=== PATIENT | female | born 1960 | race Caucasian/White ===

== ENCOUNTER 2017-01-09 19:53 | Emergency (ER) | payer OTHER ==
[2017-01-09] MEDS ORDERED: ONDANSETRON HCL 4 MG/2 ML VIAL ONE ×2 (20:17→21:06)
[2017-01-09] MEDS ORDERED: ACETAMINOPHEN 325 MG TABLET PO ONE (20:30)
[2017-01-09] MEDS ORDERED: ONDANSETRON ODT PREPAC 4 MG TAB.RAPDIS PO ONE (21:23)
--- NOTE | 2017-01-09 22:01 | ER NURSING DOCUMENTATION ---
Nurse's Notes [facility] Name:Anna Santiago Age:56 yrs Sex:Female :1960 Arrival Date:01/09/2017 Time:19:53 Bed1 Private MD: Diagnosis:Gastroenteritis;Vomiting - Dehydration-2nd to Altitude Illness Presentation: 01/09 20:00 Presenting complaint: Patient states: Pt states she has had a headache for 2 days, ma assoc NV since 1300 Unable to keep anything down. Transition of care: Home. 20:00 Method Of Arrival: Private Vehicle dc 20:00 Acuity: SYBIL 3 ma Triage Assessment: 20:03 General: Appears uncomfortable, well developed, well nourished, well groomed, Behavior ma is cooperative. Pain: Complains of pain in left eye. GI: Reports vomiting. Historical: - Allergies: Tapazole; - Home Meds: 1. thyroid (pork) oral - PMHx: migraines years ago; Rotator cuff tear; - PSHx: ; HYSTERECTOMY; - Tetanus: unknown. - Ebola Screening: : No symptoms or risks identified at this time. . - Immunization history: Flu Vaccine unknown. - Social history: Smoking status: Patient states was never smoker of tobacco. Patient uses alcohol but reports only rare drinking. Screenin:04 Infectious Disease Risk None. Abuse screen: Denies threats or abuse. Nutritional ma screening: No deficits noted. Assessment: 20:04 GI: Dry heaves. ma Vital Signs: 20:03 BP 129 / 54; Pulse 94; Resp 18; Temp 99.0; Pulse Ox 91% on R/A; Weight 61.23 kg; Height ma 5 ft. 3 in. (160.02 cm); Pain 5/10; 20:38 BP 132 / 77; Pulse 90; Pulse Ox 90% ; ma 21:10 BP 137 / 76; Pulse 88; Pulse Ox 97% on R/A; ma 20:03 Body Mass Index 23.91 (61.23 kg, 160.02 cm) dc ED Course: 19:53 Patient arrived in ED. ma1 20:00 Heaven Reyes, RN is Primary Nurse. ma 20:01 Triage completed. ma 20:04 Valuables Remains with patient. Pulse Ox - RN Monitoring Only NIBP On - RN Monitoring ma Only. 20:14 Inserted peripheral IV: 20 gauge in right antecubital area. ma 20:23 Javi Abebe MD is Attending Physician. cd Administered Medications: 20:13 Drug: Zofran 4 mg; Route: IVP; Infused Over: 2 mins; Site: right antecubital; ma 21:31 Follow up: Response: Nausea is decreased ma 20:13 Drug: NS 0.9% 1000 ml; Route: IV; Rate: bolus; Site: right antecubital; Delivery: ma [place] [facility]; 20:45 Follow up: IV Status: Completed infusion; IV Intake: 100ml ma 20:26 Drug: Acetaminophen 975 mg; Route: PO; ma 21:31 Follow up: Response: Pain is decreased ma 20:50 Drug: NS 0.9% 1000 ml; Route: IV; Rate: bolus; Site: right antecubital; Delivery: ma [place] [facility]; 21:18 Follow up: IV Status: Completed infusion; IV Intake: 1000ml ma 21:01 Drug: Zofran 4 mg; Route: IVP; Infused Over: 2 mins; Site: right antecubital; fc 21:30 Follow up: Response: Nausea is decreased ma 21:17 Drug: Zofran 1 tablet; Route: PO; ma 21:30 Follow up: Response: Pharmacy closed - take home med pack ma Intake: 20:45 IV: 100ml; Total: 100ml. ma 21:18 IV: 1000ml; Total: 1100ml. ma Outcome: 21:08 Discharge ordered by . cd 21:59 Discharged to home 21:59 Condition: improved 21:59 Instructed on medication usage, hydration 22:00 Patient left the ED. Signatures: Heaven Reyes, Javi Moran RN, ma, MD MD cd collins, floyd Pushpa Tellez [facility]
--- NOTE | 2017-01-09 22:01 | ER PHYSICIAN DOCUMENTATION ---
Physician Documentation [facility] Name:Anna Santiago Age:56 yrs Sex:Female :1960 Arrival Date:01/09/2017 Time:19:53 Bed1 Private MD: Javi Mejia Disposition: 01/09 21:05 Chart complete. cd Disposition: 01/09/17 21:08 Discharged to Home/Self Care. Impression: Gastroenteritis, Vomiting - Dehydration - 2nd to Altitude Illness. - Condition is Good. - Discharge Instructions: DEHYDRATION (6y-Adult), VOMITING (6y-Adult). - Prescriptions for Zofran 4 mg Oral - take 1 tablet by ORAL route every 6 hours as needed for nausea or vomiting; 6 tablet. - Medical Reconciliation form form. - Follow up: Private Physician; When: 7 - 10 days; Reason: Recheck today's complaints, Continuance of care. - Problem is new. - Symptoms have improved. - Notes: Take Zofran 4mg under tongue every 6 hours as needed for nausea or vomiting Rest, do not go to higher elevation... Take Tylenol 650mg by mouth every 6 hours for 1 - 2 days. Increase fluids to 2 - 3 quarts per day If symptoms continue go to lower elevation. HPI: 20:00 This 56 yrs old Female presents to ER via Private Vehicle with complaints of cd Nausea, Vomiting, Headache. 20:00 The patient presents to the emergency department with nausea, that is moderate, with cd vomiting, a few times, described as clear fluid, without any complaints of abdominal pain. Onset: The symptom(s)/episode began/occurred acutely, 2 day(s) ago, after arrival to [place]. She also complains of a headache. Very little PO intake over the past couple days. Possible causes: travel, arrived from [place] 2 days ago. Associated signs and symptoms: Pertinent positives: anorexia, nausea, vomiting, Pertinent negatives: abdominal pain, diarrhea, dysuria, fever, GI bleeding. Severity of symptoms: At their worst the symptoms were moderate in the emergency department the symptoms are unchanged. Historical: - Allergies: Tapazole; - Home Meds: 1. thyroid (pork) oral - PMHx: migraines years ago; Rotator cuff tear; - PSHx: ; HYSTERECTOMY; - Tetanus: unknown. - Ebola Screening: : No symptoms or risks identified at this time. . - Immunization history: Flu Vaccine unknown. - Social history: Smoking status: Patient states was never smoker of tobacco. Patient uses alcohol but reports only rare drinking. ROS: 20:05 Constitutional: Positive for poor PO intake, Negative for chills, fever. cd 20:05 Abdomen/GI: Positive for nausea, vomiting, anorexia, Negative for abdominal pain, diarrhea, abdominal distension, hematemesis, black/tarry stool, rectal bleeding. 20:05 All other systems are negative. Exam: 20:05 Head/Face: Normocephalic, atraumatic. cd 20:05 ENT: Nares patent. No nasal discharge, no septal abnormalities noted. Tympanic cd membranes are normal and external auditory canals are clear. Oropharynx with no redness, swelling, or masses, exudates, or evidence of obstruction, uvula midline. Mucous membranes dry Back: No spinal tenderness. No costovertebral tenderness. Full range of motion. Skin: Warm, dry with normal turgor. Normal color with no rashes, no lesions, and no evidence of cellulitis. MS/ Extremity: Pulses equal, no cyanosis. Neurovascular intact. Full, normal range of motion. 20:05 Neuro: Awake and alert, GCS 15, oriented to person, place, time, and situation. Cranial nerves II-XII grossly intact. Motor strength 5/5 in all extremities. Sensory grossly intact. Cerebellar exam normal. Normal gait. 20:05 Constitutional: The patient appears alert, awake, non-diaphoretic, non-toxic, well developed, well nourished, in obvious distress, mildly distressed. 20:05 Cardiovascular: Rate: normal, Rhythm: regular, Pulses: no pulse deficits are appreciated, Heart sounds: normal. 20:05 Respiratory: the patient does not display signs of respiratory distress, Respirations: normal, no acute changes, Breath sounds: are normal, clear throughout. 20:05 Abdomen/GI: Inspection: abdomen appears normal, distension, is not seen, Bowel sounds: normal, active, Palpation: abdomen is soft and non-tender, no appreciated organomegaly, Indicators: McBurney's point is not tender, Mays's sign is negative. Vital Signs: 20:03 BP 129 / 54; Pulse 94; Resp 18; Temp 99.0; Pulse Ox 91% on R/A; Weight 61.23 kg; Height ny 5 ft. 3 in. (160.02 cm); Pain 5/10; 20:38 BP 132 / 77; Pulse 90; Pulse Ox 90% ; ma 21:10 BP 137 / 76; Pulse 88; Pulse Ox 97% on R/A; ma 20:03 Body Mass Index 23.91 (61.23 kg, 160.02 cm) ny MDM: 20:00 Data interpreted: Pulse oximetry: on room air is 97 %. Interpretation: normal. cd 20:15 Differential diagnosis: gastritis, Altitude Illness, Dehydration. cd 20:23 Patient medically screened. cd 21:00 Data reviewed: vital signs, nurses notes, old medical records, and as a result, I will cd discharge patient, administer IV fluids, NS bolus, NS maintenence. 21:05 Counseling: I had a detailed discussion with the patient and/or guardian regarding: the cd historical points, exam findings, and any diagnostic results supporting the discharge/admit diagnosis, the need for outpatient follow up, for a recheck, with the patient's primary care provider, to return to the emergency department if symptoms worsen or persist or if there are any questions or concerns that arise at home. Response to treatment: the patient's symptoms have markedly improved after treatment, the patient's symptoms have resolved after treatment, the patient's condition has returned to base line, the patient is now symptom free, patient is well hydrated. and as a result, I will discharge patient. Dispensed Medications: 20:13 Drug: Zofran 4 mg; Route: IVP; Infused Over: 2 mins; Site: right antecubital; ma 21:31 Follow up: Response: Nausea is decreased ma 20:13 Drug: NS 0.9% 1000 ml; Route: IV; Rate: bolus; Site: right antecubital; Delivery: ma [place] [facility]; 20:45 Follow up: IV Status: Completed infusion; IV Intake: 100ml ma 20:26 Drug: Acetaminophen 975 mg; Route: PO; ma 21:31 Follow up: Response: Pain is decreased ma 20:50 Drug: NS 0.9% 1000 ml; Route: IV; Rate: bolus; Site: right antecubital; Delivery: ma [place] [facility]; 21:18 Follow up: IV Status: Completed infusion; IV Intake: 1000ml ma 21:01 Drug: Zofran 4 mg; Route: IVP; Infused Over: 2 mins; Site: right antecubital; fc 21:30 Follow up: Response: Nausea is decreased ma 21:17 Drug: Zofran 1 tablet; Route: PO; ma 21:30 Follow up: Response: Pharmacy closed - take home med pack ma Signatures: Heaven Reyes, Javi Moran RN, ma, MD MD cd collins, floyd
== END 2017-01-09 22:01 | disposition home or self-care (01) ==
LOC: ER 19:53
DX: K52.89 Other specified noninfective gastroenteritis and colitis (principal); E86.0 Dehydration; R51 Headache; T70.29XA Other effects of high altitude, initial encounter; Z79.899 Other long term (current) drug therapy
CPT/HCPCS: 96361; 96374; 96376; 99283; J2405